=== PATIENT | male | born 1965 | race African-American/Black ===

== ENCOUNTER 2017-03-22 13:38 | Emergency (ER) | payer BC ==
[~2017-03-22] VITALS: Ht 170.2 cm; Wt 75.0 kg
[2017-03-22] MEDS ORDERED: METF500T4 PO (13:42)
[2017-03-22] MEDS ORDERED: SODIUM CHLORIDE 0.9% 1,000 ML IV ONE (13:58)
[2017-03-22 14:17] LABS: BASOPHILS % 0.5 % (0.0-2.0); EOSINOPHILS % 1.3 % (0.0-5.0); HEMATOCRIT. 37.6 % (42.0-52.0); HEMOGLOBIN. 12.9 g/dL (14.0-18.0); MEAN CORPUSCULAR HEMOGLOBIN 29.3 pg (28.0-32.0); MEAN CORPUSCULAR VOLUME 85.5 fL (80.0-94.0); MEAN PLATELET VOLUME 10.2 fl (7.4-10.4); MONOCYTES % 6.9 % (2.0-8.0); NEUTROPHILS % 69.3 % (40.0-76.0); PLATELET 208 x1000/uL (130-400); RED BLOOD CELL COUNT 4.39 mill/uL (4.7-6.1); RED CELL DISTRIBUTION WIDTH 13.5 % (11.6-14.6)
[2017-03-22 14:21] LABS: PROTHROMBIN TIME 10.5 sec (9.4-11.6)
[2017-03-22 14:28] LABS: CARBON DIOXIDE 23 mEq/L (21-32); CHLORIDE 102 mEq/L (98-107)
[2017-03-22] MEDS ORDERED: INSULIN REGULAR (HUMULIN R) 300UNITS/3ML IV ONE (15:00)
[2017-03-22 16:11] VITALS: BP 128/70
== END 2017-03-22 16:13 | disposition home or self-care (01) ==
LOC: ER 13:54
DX: R55 Syncope and collapse (principal); E11.65 Type 2 diabetes mellitus with hyperglycemia; R00.0 Tachycardia, unspecified; I10 Essential (primary) hypertension; Z79.84 Long term (current) use of oral hypoglycemic drugs
CPT/HCPCS: 36415; 80053; 85025; 85610; 93005; 96361; 96374; 99285; J1815; Z7610; J7030

== ENCOUNTER 2024-06-05 18:40 | Inpatient (IN) | payer BC, OTHER ==
[~2024-06-05] VITALS: Ht 182.9 cm; Wt 81.2 kg
[~2024-06-05 18:40] MED LIST: METF-414 PO
[2024-06-05 22:46] LABS: HEMATOCRIT. 27.5 % (42.0-52.0); HEMOGLOBIN. 8.6 g/dL (14.0-18.0); MEAN CORPUSCULAR HEMOGLOBIN 26.9 pg (28.0-32.0); MEAN CORPUSCULAR HGB CONC 31.3 g/dL (31.0-37.0); MEAN CORPUSCULAR VOLUME 86.1 fL (80.0-94.0); MEAN PLATELET VOLUME 9.1 fl (7.4-10.4); PLATELET 557 x1000/uL (130-400); RED CELL DISTRIBUTION WIDTH 17.6 % (11.6-14.6); WHITE BLOOD COUNT 25.6 x1000/uL (4.5-11.0)
[2024-06-05 22:48] LABS: DIFFERENTIAL COMMENT 1
[2024-06-05 22:55] LABS: CARBON DIOXIDE 15 mEq/L (21-32); CHLORIDE 97 mEq/L (98-107); INR 1.1; POTASSIUM 5.2 mEq/L (3.5-5.1); PROTHROMBIN TIME 11.7 sec (9.6-11.0); SODIUM 130 mEq/L (136-145)
[2024-06-05 22:56] LABS: CALCIUM 9.1 mg/dL (8.7-10.4)
[2024-06-05 23:01] LABS: UREA NITROGEN BLOOD 95 mg/dL (9-23)
[2024-06-05 23:03] LABS: BETA HYDROXYBUTYRATE 4.5 mMol/L (0.0-0.3)
[2024-06-05 23:20] LABS: ANISOCYTOSIS 1+; PLATELET ESTIMATE INCREASED
[2024-06-05] MEDS ORDERED: PIPERACILLIN/TAZO 3.375G/50ML 50 ML IV STA (23:22)
[2024-06-05 23:24] LABS: ETHANOL BLOOD < 10 mg/dL (<10); TROPONIN I HIGH SENSITIVITY < 4 ng/L (3.0-53)
[2024-06-05 23:26] LABS: CREATININE 7.4 mg/dL (0.6-1.3); GLUCOSE 565 mg/dL (70-105)
[2024-06-05] MEDS: SODIUM CHLORIDE 0.9% (SEPSIS BOLUS) IV ONE (23:30)
[2024-06-05 23:37] LABS: ALANINE AMINOTRANSFERASE 18 IU/L (10-49); ALBUMIN 3.5 g/dL (3.2-4.8); ASPARTATE AMINOTRANSFERASE 19 IU/L (<34); BILIRUBIN TOTAL 0.2 mg/dL (0.1-1.0); PROTEIN TOTAL 7.6 g/dL (6.0-8.3)
[2024-06-05 23:51] LABS: BILIRUBIN DIRECT < 0.1 mg/dL (<=3.0)
[2024-06-06 00:21] LABS: BG BASE EXCESS -9.7 mmol/L (-2.0-3.0); BG CARBOXYHEMOGLOBIN 0.1 % (0.5-1.5); BG DEOXYHEMOGLOBIN 0.9 % (0.0-5.0); BG FRACTION INSPIRED OXYGEN 21; BG HCO3 ACT 14.1 mmol/L (21.0-28.0); BG OXYGEN SATURATION 99.1 % (94.0-98.0); BG PCO2 24.4 mmHg (35.0-48.0); BG PH 7.379 (7.350-7.450); BG VENT MODE ROOM AIR
[2024-06-06] MEDS ORDERED: GUAIFENESIN 200MG/10ML SUGAR FREE UDC PO PRN (02:45)
[2024-06-06] MEDS ORDERED: MAGNESIUM/ALUMINUM HYDROXIDE/SIMETHICONE 30ML UDC PO PRN (02:45)
[2024-06-06] MEDS ORDERED: ONDANSETRON HCL 4MG/2ML INJ IV PRN (02:45)
[2024-06-06] MEDS ORDERED: IPRATROPIUM/ALBUTEROL 0.5-3(2.5)MG/3ML NEB HHN PRN (02:45)
[2024-06-06] MEDS ORDERED: DEXTROSE 50% WATER 50ML SYRINGE IV PRN (03:00)
[2024-06-06] MEDS ORDERED: VANCOMYCIN 1.5GM PMX (XELLIA) 300 ML IV NR (03:15)
[2024-06-06] MEDS: SODIUM CHLORIDE 0.9% 1,000 ML IV ONE (03:56)
[2024-06-06 04:07] LABS: CREATINE KINASE 36 IU/L (46-171)
[2024-06-06] MEDS: THIAMINE HCL 100MG TABLET PO SCH (04:08)
[2024-06-06] MEDS: INSULIN GLARGINE 100 UNITS/ML SUBCUT NR ×2 (04:10→09:14)
[2024-06-06] MEDS: PIPERACILLIN/TAZO 3.375G/50ML 50 ML IV SCH ×2 (04:21→21:10)
[2024-06-06] MEDS: SODIUM CHLORIDE 0.9% 1,000 ML IV SCH (04:22)
[2024-06-06] MEDS: INSULIN REGULAR (HUMULIN R) 1000UNITS/10ML VIAL IV NR (04:22)
[2024-06-06 05:15] LABS: PHOSPHORUS 8.7 mg/dL (2.5-4.9)
[2024-06-06 07:20] LABS: HEMATOCRIT. 26.7 % (42.0-52.0); HEMOGLOBIN. 8.3 g/dL (14.0-18.0); MEAN CORPUSCULAR HEMOGLOBIN 25.9 pg (28.0-32.0); MEAN CORPUSCULAR VOLUME 83.5 fL (80.0-94.0); MEAN PLATELET VOLUME 10.2 fl (7.4-10.4); PLATELET 547 x1000/uL (130-400); RED CELL DISTRIBUTION WIDTH 17.8 % (11.6-14.6); WHITE BLOOD COUNT 26.9 x1000/uL (4.5-11.0)
[2024-06-06 07:21] LABS: POTASSIUM 5.4 mEq/L (3.5-5.1)
[2024-06-06 07:22] LABS: CALCIUM 9.2 mg/dL (8.7-10.4)
[2024-06-06 07:24] LABS: DIFFERENTIAL COMMENT 1
[2024-06-06 07:48] LABS: CREATININE 7.3 mg/dL (0.6-1.3)
[2024-06-06] MEDS ORDERED: NALOXONE HCL 0.4MG/ML VIAL IV PRN (08:00)
[2024-06-06] MEDS ORDERED: MULTIVITAMINS,THER W-MINERALS TABLET PO SCH (09:00)
[2024-06-06] MEDS ORDERED: VANCOMYCIN 1G PREMIX 200 ML IV SCH (09:00)
[2024-06-06] MEDS: BLOOD SUGAR DIAGNOSTIC STRIP TEST SCH (09:15)
[2024-06-06] MEDS: ENOXAPARIN 30MG/0.3ML SYR SUBCUT SCH (09:19)
[2024-06-06 10:00] VITALS: BP 147/70; PULSE 93; RESP 18; TEMP 36.6; O2SAT 99
[2024-06-06 11:15] LABS: CLARITY URINE CLEAR (CLEAR); COLOR URINE YELLOW (YELLOW); GLUCOSE URINE 3+ (NEGATIVE); KETONES URINE 1+ (NEGATIVE); LEUKOCYTE ESTERASE URINE NEGATIVE (NEGATIVE); NITRITE URINE NEGATIVE (NEGATIVE); OCCULT BLOOD URINE 1+ (NEGATIVE); PH URINE 5.5 (4.5-8.0); PROTEIN URINE 3+ (NEGATIVE); UROBILINOGEN URINE 0.2 E.U./dL (0.2-1.0)
[2024-06-06 11:44] LABS: *AMPHETAMINES SCREEN URINE NEGATIVE (NEGATIVE); *BARBITURATES SCREEN URINE NEGATIVE (NEGATIVE); *BENZODIAZEPINES SCREEN URINE NEGATIVE (NEGATIVE); *COCAINE SCREEN URINE NEGATIVE (NEGATIVE); METHADONE URINE SCREEN NEGATIVE (NEGATIVE)
[2024-06-06 11:45] LABS: CANNABINOID URINE SCREEN NEGATIVE (NEGATIVE); CREATININE URINE RANDOM 42.8 mg/dL; ECSTASY MDMA SCREEN URINE NEGATIVE (NEGATIVE); OPIATES URINE SCREEN NEGATIVE (NEGATIVE); PHENCYCLIDINE URINE SCREEN NEGATIVE (NEGATIVE)
[2024-06-06 12:00] VITALS: BP 152/79; PULSE 96; RESP 18; TEMP 36.3; O2SAT 100
[2024-06-06 12:04] LABS: BACTERIA URINE RARE; RBC URINE NONE SEEN /hpf (0-2); SQUAMOUS EPITHELIAL CELL URINE NONE SEEN /lpf (RARE/1+); WBC URINE 0-2 /hpf (0-2); YEAST URINE NONE SEEN
[2024-06-06 12:39] VITALS: BP 145/75; PULSE 88; RESP 20; TEMP 36.7
[2024-06-06] MEDS: INSULIN LISPRO 100 UNITS/ML SUBCUT SCH ×2 (12:40→13:30)
[2024-06-06] MEDS: VANCOMYCIN 1000MG/250ML 250 ML IV SCH (14:00)
[2024-06-06] MEDS: SEVELAMER CARBONATE 800 MG TABLET PO SCH (14:53)
[2024-06-06] MEDS ORDERED: VANCOMYCIN 1.25GM PMX (XELLIA) 250 ML IV SCH (15:00)
[2024-06-06 16:00] VITALS: BP 128/68; PULSE 92; RESP 18; TEMP 37; O2SAT 98
[2024-06-06 16:47] LABS: ANISOCYTOSIS 1+; PLATELET ESTIMATE INCREASED
[2024-06-06 19:06] LABS: POTASSIUM 4.1 mEq/L (3.5-5.1)
[2024-06-06 19:07] LABS: CALCIUM 8.9 mg/dL (8.7-10.4)
[2024-06-06 19:47] LABS: CREATININE 6.1 mg/dL (0.6-1.3)
[2024-06-06 20:00] VITALS: BP 139/77; PULSE 80; RESP 17; TEMP 38.1; O2SAT 98
[2024-06-06] MEDS: VANCOMYCIN 1.25GM PMX (XELLIA) 250 ML IV SCH (21:10)
[2024-06-06] MEDS: FAMOTIDINE 20MG TABLET PO SCH (21:11)
[2024-06-06 21:22] LABS: POTASSIUM 4.1 mEq/L (3.5-5.1)
[2024-06-06 21:23] LABS: CALCIUM 9.1 mg/dL (8.7-10.4)
[2024-06-06 21:30] LABS: CREATININE 5.8 mg/dL (0.6-1.3)
[2024-06-07] VITALS: BP_SYST 126; PULSE 75; RESP 17; TEMP 37.4; O2SAT 95
[2024-06-07 04:00] VITALS: BP 146/67; PULSE 78; RESP 15; TEMP 37.7; O2SAT 96
[2024-06-07 08:00] VITALS: BP 154/79; PULSE 65; RESP 20; TEMP 36.7; O2SAT 98
[2024-06-07 12:00] VITALS: BP 143/82; PULSE 98; RESP 20; TEMP 36.8; O2SAT 98
[2024-06-07 16:00] VITALS: BP 143/87; PULSE 78; RESP 18; TEMP 36.1; O2SAT 98
[2024-06-07 20:00] VITALS: BP 139/82; PULSE 104; RESP 20; TEMP 36.4; O2SAT 96
[2024-06-07] MEDS: INSULIN GLARGINE 100 UNITS/ML SUBCUT SCH (21:43)
[2024-06-07 21:48] LABS: CREATININE URINE (RAW) 49.8 mg/dl
[2024-06-07 22:32] LABS: HEMATOCRIT. 23.9 % (42.0-52.0); HEMOGLOBIN. 7.9 g/dL (14.0-18.0); MEAN CORPUSCULAR HEMOGLOBIN 26.9 pg (28.0-32.0); MEAN CORPUSCULAR VOLUME 81.5 fL (80.0-94.0); MEAN PLATELET VOLUME 9.5 fl (7.4-10.4); PLATELET 501 x1000/uL (130-400); RED BLOOD CELL COUNT 2.93 mill/uL (4.7-6.1); RED CELL DISTRIBUTION WIDTH 17.1 % (11.6-14.6); WHITE BLOOD COUNT 23.7 x1000/uL (4.5-11.0)
[2024-06-07 22:38] LABS: CHLORIDE 105 mEq/L (98-107); POTASSIUM 3.9 mEq/L (3.5-5.1)
[2024-06-07 22:39] LABS: CARBON DIOXIDE 20 mEq/L (21-32); DIFFERENTIAL COMMENT 1; SODIUM 137 mEq/L (136-145)
[2024-06-07 22:40] LABS: CALCIUM 8.6 mg/dL (8.7-10.4)
[2024-06-07 22:44] LABS: CREATININE 4.2 mg/dL (0.6-1.3); GLUCOSE 230 mg/dL (70-105)
[2024-06-07 22:45] LABS: TRIGLYCERIDE 210 mg/dL (0-150); UREA NITROGEN BLOOD 67 mg/dL (9-23)
[2024-06-07 22:46] LABS: LDL CHOLESTEROL 79 mg/dL (5-100)
[2024-06-07 22:47] LABS: CHOLESTEROL 160 mg/dL (<200); HDL CHOLESTEROL < 20 mg/dL (>55)
[2024-06-07 22:49] LABS: T4 FREE 0.93 ng/dL (0.89-1.76); THYROID STIMULATING HORMONE 1.16 uIU/mL (0.55-4.78)
[2024-06-07 22:53] LABS: ANISOCYTOSIS 1+; PLATELET ESTIMATE INCREASED
[2024-06-08] VITALS: BP 138/76; PULSE 103; RESP 18; TEMP 36.6; O2SAT 97
[2024-06-08 04:00] VITALS: BP 159/85; PULSE 95; RESP 18; TEMP 36.3; O2SAT 97
[2024-06-08 07:41] LABS: POTASSIUM 3.8 mEq/L (3.5-5.1)
[2024-06-08 07:43] LABS: CALCIUM 8.1 mg/dL (8.7-10.4)
[2024-06-08 07:52] LABS: HEMOGLOBIN. 7.8 g/dL (14.0-18.0); MEAN CORPUSCULAR HEMOGLOBIN 26.6 pg (28.0-32.0); MEAN CORPUSCULAR HGB CONC 32.5 g/dL (31.0-37.0); MEAN PLATELET VOLUME 9.5 fl (7.4-10.4); PLATELET 437 x1000/uL (130-400); RED BLOOD CELL COUNT 2.92 mill/uL (4.7-6.1); RED CELL DISTRIBUTION WIDTH 17.3 % (11.6-14.6); WHITE BLOOD COUNT 20.1 x1000/uL (4.5-11.0)
[2024-06-08 08:00] VITALS: BP 137/92; PULSE 94; RESP 20; TEMP 38.3; O2SAT 96
[2024-06-08 08:18] LABS: DIFFERENTIAL COMMENT 1
[2024-06-08 09:06] LABS: COMPLEMENT C3 192 mg/dL (82-167); COMPLEMENT C4 29 mg/dL (12-38)
[2024-06-08] MEDS: HYDROCODONE/ACETAMINOPHEN 5/325MG TABLET PO PRN (10:13)
[2024-06-08] MEDS: ACETAMINOPHEN 325MG TABLET PO PRN (10:13)
[2024-06-08 12:00] VITALS: RESP 20; TEMP 38.9; O2SAT 96
[2024-06-08] MEDS: VANCOMYCIN 1.25GM PMX (XELLIA) 250 ML IV NR (12:10)
[2024-06-08 13:11] LABS: ANTI-NUCLEAR ANTIBODIES DIRECT Positive (Negative)
[2024-06-08 16:00] VITALS: BP 133/73; PULSE 86; RESP 18; TEMP 38.1; O2SAT 98
[2024-06-08 17:54] LABS: ANISOCYTOSIS 1+
[2024-06-08 17:55] LABS: MICROCYTOSIS 1+; PLATELET ESTIMATE INCREASED
[2024-06-08 20:00] VITALS: BP 133/71; PULSE 100; RESP 18; TEMP 36.7; O2SAT 98
[2024-06-09] VITALS (7 sets, daily range): BP systolic 111–152; BP diastolic 59–81; PULSE 88–107; RESP 17–18; TEMP 36.1–37.8; O2SAT 95–98
[2024-06-09 06:31] LABS: HEMATOCRIT. 21.5 % (42.0-52.0); HEMOGLOBIN. 7.1 g/dL (14.0-18.0); MEAN CORPUSCULAR HEMOGLOBIN 27.1 pg (28.0-32.0); MEAN CORPUSCULAR HGB CONC 32.9 g/dL (31.0-37.0); MEAN CORPUSCULAR VOLUME 82.5 fL (80.0-94.0); MEAN PLATELET VOLUME 9.1 fl (7.4-10.4); PLATELET 373 x1000/uL (130-400); POTASSIUM 3.6 mEq/L (3.5-5.1); RED BLOOD CELL COUNT 2.61 mill/uL (4.7-6.1); RED CELL DISTRIBUTION WIDTH 17.1 % (11.6-14.6); WHITE BLOOD COUNT 21.9 x1000/uL (4.5-11.0)
[2024-06-09 06:32] LABS: CALCIUM 7.9 mg/dL (8.7-10.4)
[2024-06-09 06:36] LABS: DIFFERENTIAL COMMENT 1
[2024-06-09 06:37] LABS: CREATININE 3.6 mg/dL (0.6-1.3)
[2024-06-09] MEDS ORDERED: CIPR500S3 PO (09:37)
[2024-06-09] MEDS ORDERED: IBUP-2029 PO (09:37)
[2024-06-09] MEDS ORDERED: AMOX1TAB16 PO (09:37)
[2024-06-09] MEDS ORDERED: CIPR500T5 PO (09:38)
[2024-06-09] MEDS: SODIUM HYPOCHLORITE (0.25%) 480ML SOLUTION (HALF STRENGTH) TOP SCH (16:21)
[2024-06-09] MEDS: ACETAMINOPHEN 325MG TABLET PO PRN (22:40)
[2024-06-10] VITALS (7 sets, daily range): BP systolic 103–149; BP diastolic 51–65; PULSE 88–110; RESP 18–20; TEMP 36.1–39.2; O2SAT 97–100
[2024-06-10 09:18] LABS: HEMATOCRIT. 22.4 % (42.0-52.0); MEAN CORPUSCULAR HEMOGLOBIN 26.6 pg (28.0-32.0); MEAN CORPUSCULAR HGB CONC 30.9 g/dL (31.0-37.0); MEAN CORPUSCULAR VOLUME 86.1 fL (80.0-94.0); MEAN PLATELET VOLUME 9.6 fl (7.4-10.4); PLATELET 275 x1000/uL (130-400); RED CELL DISTRIBUTION WIDTH 17.3 % (11.6-14.6); WHITE BLOOD COUNT 19.4 x1000/uL (4.5-11.0)
[2024-06-10 09:21] LABS: POTASSIUM 3.5 mEq/L (3.5-5.1)
[2024-06-10 09:26] LABS: CREATININE 3.1 mg/dL (0.6-1.3)
[2024-06-10 11:27] LABS: DIFFERENTIAL COMMENT 1
[2024-06-10 11:29] LABS: HEMOGLOBIN. 6.9 g/dL (14.0-18.0)
[2024-06-10] MEDS: VANCOMYCIN 1G PREMIX 200 ML IV NR (13:20)
[2024-06-10 14:05] LABS: ANISOCYTOSIS 1+; PLATELET ESTIMATE NORMAL
[2024-06-10 19:41] LABS: HEMATOCRIT 21.8 % (42.0-52.0); HEMOGLOBIN 6.9 g/dL (14.0-18.0)
[2024-06-11] VITALS (9 sets, daily range): BP systolic 122–149; BP diastolic 58–71; PULSE 84–93; RESP 18–20; TEMP 36.2–38.2; O2SAT 97–98
[2024-06-11 06:30] LABS: HEMATOCRIT. 23.2 % (42.0-52.0); HEMOGLOBIN. 7.5 g/dL (14.0-18.0); MEAN CORPUSCULAR HEMOGLOBIN 26.9 pg (28.0-32.0); MEAN CORPUSCULAR HGB CONC 32.2 g/dL (31.0-37.0); MEAN CORPUSCULAR VOLUME 83.6 fL (80.0-94.0); MEAN PLATELET VOLUME 9.9 fl (7.4-10.4); PLATELET 329 x1000/uL (130-400); RED BLOOD CELL COUNT 2.77 mill/uL (4.7-6.1); RED CELL DISTRIBUTION WIDTH 16.4 % (11.6-14.6); WHITE BLOOD COUNT 20.8 x1000/uL (4.5-11.0)
[2024-06-11 06:33] LABS: DIFFERENTIAL COMMENT 1
[2024-06-11] MEDS: HYDROCODONE/ACETAMINOPHEN 5/325MG TABLET PO PRN (11:37)
[2024-06-11] MEDS ORDERED: NALOXONE HCL 0.4MG/ML VIAL IV PRN (11:45)
[2024-06-11 15:33] LABS: ANISOCYTOSIS 1+; HYPOCHROMASIA 1+; PLATELET ESTIMATE NORMAL
[2024-06-11 16:39] LABS: ANISOCYTOSIS 1+; HYPOCHROMASIA 1+; PLATELET ESTIMATE NORMAL
[2024-06-12] VITALS: BP 130/69; PULSE 98; RESP 18; TEMP 36.9; O2SAT 97
[2024-06-12 04:00] VITALS: BP 117/60; PULSE 96; RESP 20; TEMP 36.7; O2SAT 98
[2024-06-12 05:19] LABS: POTASSIUM 3.4 mEq/L (3.5-5.1)
[2024-06-12 05:20] LABS: CALCIUM 7.9 mg/dL (8.7-10.4)
[2024-06-12 05:25] LABS: CREATININE 2.6 mg/dL (0.6-1.3)
[2024-06-12 09:32] LABS: HEMATOCRIT. 24.5 % (42.0-52.0); HEMOGLOBIN. 7.7 g/dL (14.0-18.0); MEAN CORPUSCULAR HEMOGLOBIN 26.2 pg (28.0-32.0); MEAN CORPUSCULAR HGB CONC 31.6 g/dL (31.0-37.0); MEAN CORPUSCULAR VOLUME 82.9 fL (80.0-94.0); MEAN PLATELET VOLUME 9.6 fl (7.4-10.4); PLATELET 353 x1000/uL (130-400); RED BLOOD CELL COUNT 2.95 mill/uL (4.7-6.1); RED CELL DISTRIBUTION WIDTH 16.7 % (11.6-14.6); WHITE BLOOD COUNT 16.9 x1000/uL (4.5-11.0)
[2024-06-12 09:44] LABS: DIFFERENTIAL COMMENT 1
[2024-06-12] MEDS: POTASSIUM CHLORIDE 20MEQ TABLET SR PO ONE (11:01)
[2024-06-12 12:00] VITALS: BP 120/76; PULSE 105; RESP 18; TEMP 36.4; O2SAT 98
[2024-06-12] MEDS: VANCOMYCIN 1G PREMIX 200 ML IV NR (15:08)
[2024-06-12 16:00] VITALS: BP 120/62; PULSE 93; RESP 18; TEMP 36.6; O2SAT 98
[2024-06-12 20:00] VITALS: BP 117/66; PULSE 93; RESP 19; TEMP 36.6; O2SAT 96
[2024-06-12 21:12] LABS: ANISOCYTOSIS 1+; PLATELET ESTIMATE NORMAL
[2024-06-12] MEDS: DOCUSATE SODIUM 100MG CAPSULE PO PRN (23:44)
[2024-06-13] VITALS: BP 160/73; PULSE 102; RESP 19; TEMP 36.5; O2SAT 98
[2024-06-13 04:00] VITALS: BP 135/65; PULSE 92; RESP 19; TEMP 36.6; O2SAT 97
[2024-06-13 08:00] VITALS: BP 138/67; PULSE 85; RESP 20; TEMP 36.4; O2SAT 98
[2024-06-13 09:06] LABS: CARBON DIOXIDE 19 mEq/L (21-32); CHLORIDE 107 mEq/L (98-107); POTASSIUM 3.4 mEq/L (3.5-5.1); SODIUM 134 mEq/L (136-145)
[2024-06-13 09:08] LABS: CALCIUM 8.2 mg/dL (8.7-10.4)
[2024-06-13 09:12] LABS: CREATININE 2.2 mg/dL (0.6-1.3); GLUCOSE 173 mg/dL (70-105)
[2024-06-13 09:13] LABS: UREA NITROGEN BLOOD 28 mg/dL (9-23)
[2024-06-13 09:15] LABS: PHOSPHORUS 2.3 mg/dL (2.5-4.9)
[2024-06-13 11:01] LABS: HEMATOCRIT. 22.5 % (42.0-52.0); HEMOGLOBIN. 7.3 g/dL (14.0-18.0); MEAN CORPUSCULAR HEMOGLOBIN 26.6 pg (28.0-32.0); MEAN CORPUSCULAR HGB CONC 32.4 g/dL (31.0-37.0); MEAN CORPUSCULAR VOLUME 82.2 fL (80.0-94.0); MEAN PLATELET VOLUME 9.3 fl (7.4-10.4); PLATELET 315 x1000/uL (130-400); RED BLOOD CELL COUNT 2.74 mill/uL (4.7-6.1); RED CELL DISTRIBUTION WIDTH 16.2 % (11.6-14.6); WHITE BLOOD COUNT 16.1 x1000/uL (4.5-11.0)
[2024-06-13 11:24] LABS: DIFFERENTIAL COMMENT 1
[2024-06-13 12:00] VITALS: BP 126/64; PULSE 88; RESP 18; TEMP 36.5; O2SAT 98
[2024-06-13] MEDS: POLYETHYLENE GLYCOL 3350 (17GM) 1 DOSE PACK PO SCH (13:31)
[2024-06-13 16:00] VITALS: BP 139/75; PULSE 87; RESP 18; TEMP 36.6; O2SAT 97
[2024-06-13 20:00] VITALS: BP 123/68; PULSE 88; RESP 20; TEMP 37; O2SAT 98
[2024-06-14 00:48] VITALS: BP 125/66; PULSE 70; RESP 20; TEMP 36.7; O2SAT 98
[2024-06-14 00:49] LABS: PLATELET ESTIMATE NORMAL
[2024-06-14 04:00] VITALS: BP 143/64; PULSE 87; RESP 18; TEMP 36.7; O2SAT 98
[2024-06-14 06:59] LABS: BASOPHILS % 0.2 % (0.0-2.0); EOSINOPHILS % 1.9 % (0.0-5.0); HEMATOCRIT. 23.2 % (42.0-52.0); HEMOGLOBIN. 7.7 g/dL (14.0-18.0); MEAN CORPUSCULAR HEMOGLOBIN 26.9 pg (28.0-32.0); MEAN CORPUSCULAR HGB CONC 33.1 g/dL (31.0-37.0); MEAN CORPUSCULAR VOLUME 81.2 fL (80.0-94.0); MONOCYTES % 8.2 % (2.0-8.0); NEUTROPHILS % 80.7 % (40.0-76.0); PLATELET 309 x1000/uL (130-400); RED BLOOD CELL COUNT 2.85 mill/uL (4.7-6.1); RED CELL DISTRIBUTION WIDTH 16.2 % (11.6-14.6); WHITE BLOOD COUNT 12.7 x1000/uL (4.5-11.0)
[2024-06-14 07:01] LABS: POTASSIUM 3.9 mEq/L (3.5-5.1)
[2024-06-14 07:02] LABS: CALCIUM 7.9 mg/dL (8.7-10.4)
[2024-06-14 08:00] VITALS: BP 144/63; PULSE 88; RESP 18; TEMP 36.6; O2SAT 98
[2024-06-14 12:00] VITALS: BP 152/80; PULSE 95; RESP 18; TEMP 36.6; O2SAT 98
[2024-06-14 16:00] VITALS: BP 133/72; PULSE 94; RESP 18; TEMP 36.5; O2SAT 98
[2024-06-14] MEDS: VANCOMYCIN 1GM/200ML PMX (BAXTER) IV SCH (17:19)
[2024-06-14 20:00] VITALS: BP 148/74; PULSE 87; RESP 18; TEMP 36.6; O2SAT 99
[2024-06-15] VITALS: BP 131/59; PULSE 88; RESP 18; TEMP 36.6; O2SAT 99
[2024-06-15 04:00] VITALS: BP 139/67; PULSE 89; RESP 18; TEMP 36.5; O2SAT 99
[2024-06-15 08:00] VITALS: BP 150/77; PULSE 83; RESP 16; TEMP 36.8; O2SAT 98
[2024-06-15] MEDS ORDERED: IODIXANOL 320MG/ML 100 ML BOTTLE IV ONE (10:01)
[2024-06-15] MEDS ORDERED: LIDOCAINE HCL 1% 20ML VIAL ONE (10:01)
[2024-06-15] MEDS ORDERED: MIDAZOLAM HCL 2 MG/2 ML VIAL ONE ×2 (11:10→11:12)
[2024-06-15] MEDS ORDERED: FENTANYL CITRATE/PF 50MCG/ML 2ML VIAL ONE ×2 (11:10→11:12)
[2024-06-15] MEDS ORDERED: HEPARIN 1000 UNITS/ML 10ML ONE (11:10)
[2024-06-15] MEDS: CLONIDINE 0.1MG TABLET PO PRN (13:20)
[2024-06-15 14:00] VITALS: BP 110/63; PULSE 88; RESP 18; TEMP 36.6; O2SAT 97
[2024-06-15] MEDS: CLOPIDOGREL 75MG TABLET PO SCH (14:29)
[2024-06-15 16:00] VITALS: BP 128/68; PULSE 77; RESP 20; TEMP 36.7; O2SAT 98
[2024-06-15 20:00] VITALS: BP 137/73; PULSE 86; RESP 18; TEMP 36.9; O2SAT 98
[2024-06-15] MEDS: VANCOMYCIN 1.25GM PMX (XELLIA) 250 ML IV SCH (22:05)
[2024-06-16] VITALS: BP 120/88; PULSE 89; RESP 18; TEMP 36.5; O2SAT 97
[2024-06-16 04:00] VITALS: BP 144/70; PULSE 87; RESP 18; TEMP 36.3; O2SAT 99
[2024-06-16 06:49] LABS: POTASSIUM 4.2 mEq/L (3.5-5.1)
[2024-06-16 06:55] LABS: CREATININE 2.1 mg/dL (0.6-1.3)
[2024-06-16 07:06] LABS: BASOPHILS % 0.3 % (0.0-2.0); EOSINOPHILS % 2.5 % (0.0-5.0); HEMATOCRIT. 21.8 % (42.0-52.0); HEMOGLOBIN. 7.1 g/dL (14.0-18.0); LYMPHOCYTES % 10.4 % (20.0-50.0); MEAN CORPUSCULAR HEMOGLOBIN 26.7 pg (28.0-32.0); MEAN CORPUSCULAR HGB CONC 32.6 g/dL (31.0-37.0); MEAN CORPUSCULAR VOLUME 81.8 fL (80.0-94.0); MEAN PLATELET VOLUME 8.3 fl (7.4-10.4); MONOCYTES % 8.2 % (2.0-8.0); NEUTROPHILS % 78.6 % (40.0-76.0); PLATELET 339 x1000/uL (130-400); RED BLOOD CELL COUNT 2.67 mill/uL (4.7-6.1); RED CELL DISTRIBUTION WIDTH 16.3 % (11.6-14.6)
[2024-06-16 08:00] VITALS: BP_SYST 110; BP_SYST 146; BP_DIAS 71; BP_DIAS 75; PULSE 94; PULSE 95; RESP 18; RESP 22; TEMP 36.4; TEMP 36.6; O2SAT 97; O2SAT 99
[2024-06-16 12:00] VITALS: BP 161/83; PULSE 91; RESP 18; TEMP 37; O2SAT 99
[2024-06-16 16:00] VITALS: BP 148/84; PULSE 82; RESP 20; TEMP 38.7; O2SAT 100
[2024-06-16 18:55] VITALS: TEMP 38.2
[2024-06-17] VITALS (11 sets, daily range): BP systolic 133–163; BP diastolic 72–79; PULSE 66–102; RESP 17–20; TEMP 36.2–37.11408; O2SAT 97–100
[2024-06-17 06:49] LABS: POTASSIUM 4.5 mEq/L (3.5-5.1)
[2024-06-17 06:50] LABS: CALCIUM 7.7 mg/dL (8.7-10.4)
[2024-06-17 08:39] LABS: BASOPHILS % 0.6 % (0.0-2.0); DIFFERENTIAL COMMENT 0; EOSINOPHILS % 2.3 % (0.0-5.0); HEMATOCRIT. 21.4 % (42.0-52.0); LYMPHOCYTES % 10.4 % (20.0-50.0); MEAN CORPUSCULAR HEMOGLOBIN 26.4 pg (28.0-32.0); MEAN CORPUSCULAR HGB CONC 32.1 g/dL (31.0-37.0); MEAN CORPUSCULAR VOLUME 82.3 fL (80.0-94.0); MONOCYTES % 8.4 % (2.0-8.0); NEUTROPHILS % 78.3 % (40.0-76.0); PLATELET 337 x1000/uL (130-400); RED CELL DISTRIBUTION WIDTH 16.6 % (11.6-14.6); WHITE BLOOD COUNT 11.2 x1000/uL (4.5-11.0)
[2024-06-17 10:44] LABS: HEMOGLOBIN. 6.8 g/dL (14.0-18.0)
[2024-06-17] MEDS ORDERED: NALOXONE HCL 0.4MG/ML VIAL IV PRN (14:15)
[2024-06-17] MEDS: HYDROCODONE/ACETAMINOPHEN 5/325MG TABLET PO PRN (14:21)
[2024-06-18] VITALS (7 sets, daily range): BP systolic 127–165; BP diastolic 66–86; PULSE 92–104; RESP 18–20; TEMP 36.3–38.1; O2SAT 97–100
[2024-06-18 11:29] LABS: BASOPHILS % 0.3 % (0.0-2.0); EOSINOPHILS % 1.4 % (0.0-5.0); HEMOGLOBIN. 8.1 g/dL (14.0-18.0); LYMPHOCYTES % 10.2 % (20.0-50.0); MEAN CORPUSCULAR HEMOGLOBIN 26.9 pg (28.0-32.0); MEAN CORPUSCULAR HGB CONC 32.3 g/dL (31.0-37.0); MEAN CORPUSCULAR VOLUME 83.4 fL (80.0-94.0); MEAN PLATELET VOLUME 7.8 fl (7.4-10.4); MONOCYTES % 6.6 % (2.0-8.0); NEUTROPHILS % 81.5 % (40.0-76.0); PLATELET 389 x1000/uL (130-400); RED CELL DISTRIBUTION WIDTH 16.3 % (11.6-14.6); WHITE BLOOD COUNT 11.3 x1000/uL (4.5-11.0)
[2024-06-18 11:48] LABS: POTASSIUM 4.4 mEq/L (3.5-5.1)
[2024-06-18 11:50] LABS: CALCIUM 8.3 mg/dL (8.7-10.4)
[2024-06-18 11:54] LABS: CREATININE 1.8 mg/dL (0.6-1.3)
[2024-06-18 11:56] LABS: ALBUMIN 2.8 g/dL (3.2-4.8)
[2024-06-19] VITALS: BP 105/66; PULSE 70; RESP 20; TEMP 36.7; O2SAT 98
[2024-06-19 04:00] VITALS: BP 149/89; PULSE 96; RESP 18; TEMP 36.6; O2SAT 98
[2024-06-19 06:11] LABS: POTASSIUM 4.6 mEq/L (3.5-5.1)
[2024-06-19 06:12] LABS: CALCIUM 8.3 mg/dL (8.7-10.4)
[2024-06-19 06:17] LABS: CREATININE 1.7 mg/dL (0.6-1.3)
[2024-06-19 07:23] LABS: BASOPHILS % 0.5 % (0.0-2.0); EOSINOPHILS % 2.4 % (0.0-5.0); HEMATOCRIT. 24.3 % (42.0-52.0); HEMOGLOBIN. 8.2 g/dL (14.0-18.0); LYMPHOCYTES % 13.5 % (20.0-50.0); MEAN CORPUSCULAR HEMOGLOBIN 27.8 pg (28.0-32.0); MEAN CORPUSCULAR HGB CONC 33.8 g/dL (31.0-37.0); MEAN CORPUSCULAR VOLUME 82.3 fL (80.0-94.0); MEAN PLATELET VOLUME 7.8 fl (7.4-10.4); MONOCYTES % 6.4 % (2.0-8.0); NEUTROPHILS % 77.2 % (40.0-76.0); PLATELET 387 x1000/uL (130-400); RED BLOOD CELL COUNT 2.95 mill/uL (4.7-6.1); RED CELL DISTRIBUTION WIDTH 16.3 % (11.6-14.6); WHITE BLOOD COUNT 10.3 x1000/uL (4.5-11.0)
[2024-06-19 08:00] VITALS: BP 144/81; PULSE 97; RESP 18; TEMP 36.1; O2SAT 98
[2024-06-19 12:00] VITALS: BP 136/65; PULSE 90; RESP 20; TEMP 36.3; O2SAT 99
[2024-06-19 16:00] VITALS: BP 164/76; PULSE 90; RESP 18; TEMP 36.4; O2SAT 96
[2024-06-19 20:00] VITALS: BP 155/82; PULSE 96; RESP 20; TEMP 37.3; O2SAT 100
[2024-06-20] VITALS (9 sets, daily range): BP systolic 140–171; BP diastolic 74–94; PULSE 77–92; RESP 18–20; TEMP 36.1–37.2; O2SAT 97–100
[2024-06-20 06:29] LABS: HEMATOCRIT 25.2 % (42.0-52.0); HEMOGLOBIN 8.3 g/dL (14.0-18.0); MEAN CORPUSCULAR HEMOGLOBIN 27.3 pg (28.0-32.0); MEAN CORPUSCULAR VOLUME 82.7 fL (80.0-94.0); PLATELET 387 x1000/uL (130-400); RED BLOOD CELL COUNT 3.04 mill/uL (4.7-6.1); WHITE BLOOD COUNT 9.1 x1000/uL (4.5-11.0)
[2024-06-20 06:31] LABS: POTASSIUM 4.7 mEq/L (3.5-5.1)
[2024-06-20 06:32] LABS: CALCIUM 8.4 mg/dL (8.7-10.4)
[2024-06-20 06:37] LABS: CREATININE 1.7 mg/dL (0.6-1.3)
[2024-06-20] MEDS ORDERED: POLYMYXIN B SULFATE 500000 UNITS/VIAL ONE (15:25)
[2024-06-20] MEDS ORDERED: BUPIVACAINE HCL/PF 0.5% (5MG/ML) 10ML ONE ×2 (15:25→18:21)
[2024-06-20] MEDS ORDERED: VANCOMYCIN HCL 1GM VIAL ONE (15:25)
[2024-06-20] MEDS ORDERED: GLYCOPYRROLATE 0.2 MG/ML 2ML VIAL IV PRN (17:30)
[2024-06-20] MEDS ORDERED: DEXAMETHASONE 4MG/ML 1ML VIAL IV PRN (17:30)
[2024-06-20] MEDS ORDERED: HYDRALAZINE 20MG/ML VIAL IV PRN (17:30)
[2024-06-20] MEDS ORDERED: HYDROMORPHONE HCL/PF 1MG/ML INJ IV PRN ×2 (17:30)
[2024-06-20] MEDS ORDERED: ONDANSETRON HCL 4MG/2ML INJ IV PRN (17:30)
[2024-06-20] MEDS ORDERED: LABETALOL 5MG/ML 4ML INJ IV PRN (17:30)
[2024-06-20] MEDS ORDERED: HYDROMORPHONE HCL/PF 1MG/ML INJ ONE (17:38)
[2024-06-20] MEDS ORDERED: PROPOFOL 200MG/20ML VIAL IV ONE (17:39)
[2024-06-20] MEDS: HYDROMORPHONE HCL/PF 1MG/ML INJ IV PRN (19:56)
[2024-06-21] VITALS (7 sets, daily range): BP systolic 138–169; BP diastolic 60–87; PULSE 76–94; RESP 18–20; TEMP 36.3–37; O2SAT 97–100
[2024-06-21 06:21] LABS: CREATININE 1.7 mg/dL (0.6-1.3)
[2024-06-21 06:52] LABS: BASOPHILS % 0.6 % (0.0-2.0); EOSINOPHILS % 3.5 % (0.0-5.0); HEMATOCRIT. 27.6 % (42.0-52.0); MEAN CORPUSCULAR HEMOGLOBIN 27.3 pg (28.0-32.0); MEAN CORPUSCULAR HGB CONC 32.6 g/dL (31.0-37.0); MEAN PLATELET VOLUME 7.9 fl (7.4-10.4); MONOCYTES % 5.8 % (2.0-8.0); NEUTROPHILS % 79.1 % (40.0-76.0); PLATELET 422 x1000/uL (130-400); RED BLOOD CELL COUNT 3.29 mill/uL (4.7-6.1); RED CELL DISTRIBUTION WIDTH 16.6 % (11.6-14.6); WHITE BLOOD COUNT 10.9 x1000/uL (4.5-11.0)
[2024-06-21] MEDS: HYDRALAZINE 20MG/ML VIAL IV NR (13:27)
[2024-06-21] MEDS: HYDRALAZINE HCL 10MG TABLET PO SCH (20:57)
[2024-06-22] VITALS: BP 171/93; PULSE 100; RESP 18; TEMP 36.6; O2SAT 97
[2024-06-22 04:00] VITALS: BP 144/74; PULSE 95; RESP 18; TEMP 36.5; O2SAT 100
[2024-06-22 08:00] VITALS: BP 150/78; PULSE 101; RESP 20; TEMP 38.5; O2SAT 100
[2024-06-22 12:00] VITALS: BP 189/93; PULSE 97; RESP 19; TEMP 36.5; O2SAT 100
[2024-06-22 16:00] VITALS: BP 145/79; PULSE 89; RESP 18; TEMP 36.6; O2SAT 98
[2024-06-22] MEDS: CLONIDINE 0.2MG TABLET PO NR (18:11)
[2024-06-22 20:00] VITALS: BP 154/87; PULSE 95; RESP 18; TEMP 36.6; O2SAT 99
[2024-06-22] MEDS: HYDRALAZINE HCL 50MG TABLET PO SCH (21:50)
[2024-06-23] VITALS: BP 156/81; PULSE 90; RESP 18; TEMP 36.6; O2SAT 99
== END 2024-06-23 02:55 | DRG 853 ==
LOC: ER 18:40 → MICUSO 23:47 → 8WST 06-06 10:16
PROVIDERS: ADMIT Internal Medicine; ATTEND Internal Medicine
PROC: 5A09357 Assistance with Respiratory Ventilation, Less than 24 Consecutive Hours, Continuous Positive Airway Pressure (ICD-10-PCS; 2024-06-09)
PROC: 5A09357 Assistance with Respiratory Ventilation, Less than 24 Consecutive Hours, Continuous Positive Airway Pressure (ICD-10-PCS; 2024-06-10)
PROC: 30233N1 Transfusion of Nonautologous Red Blood Cells into Peripheral Vein, Percutaneous Approach (ICD-10-PCS; 2024-06-11)
PROC: 0J9Q0ZZ Drainage of Right Foot Subcutaneous Tissue and Fascia, Open Approach (ICD-10-PCS; principal; 2024-06-12)
PROC: B41F1ZZ Fluoroscopy of Right Lower Extremity Arteries using Low Osmolar Contrast (ICD-10-PCS; 2024-06-15)
PROC: 0Y6H0Z3 Detachment at Right Lower Leg, Low, Open Approach (ICD-10-PCS; 2024-06-20)
DX: A41.9 Sepsis, unspecified organism (principal); E11.10 Type 2 diabetes mellitus with ketoacidosis without coma; N17.0 Acute kidney failure with tubular necrosis; E11.52 Type 2 diabetes mellitus with diabetic peripheral angiopathy with gangrene; I70.261 Atherosclerosis of native arteries of extremities with gangrene, right leg; M86.9 Osteomyelitis, unspecified; L02.611 Cutaneous abscess of right foot; E11.22 Type 2 diabetes mellitus with diabetic chronic kidney disease; E87.5 Hyperkalemia; E11.69 Type 2 diabetes mellitus with other specified complication; D64.9 Anemia, unspecified; Z20.822 Contact with and (suspected) exposure to COVID-19; I12.9 Hypertensive chronic kidney disease with stage 1 through stage 4 chronic kidney disease, or unspecified chronic kidney disease; N18.9 Chronic kidney disease, unspecified; E11.65 Type 2 diabetes mellitus with hyperglycemia; E11.649 Type 2 diabetes mellitus with hypoglycemia without coma; S91.311A Laceration without foreign body, right foot, initial encounter; Z79.02 Long term (current) use of antithrombotics/antiplatelets; Z79.4 Long term (current) use of insulin; Z79.84 Long term (current) use of oral hypoglycemic drugs; W18.39XA Other fall on same level, initial encounter; Y93.89 Activity, other specified; Y92.89 Other specified places as the place of occurrence of the external cause; Y99.8 Other external cause status
CPT/HCPCS: 36247; 36415; 36600; 71045; 73590; 73700; 75710; 76700; 80048; 80061; 80076; 80202; 80305; 80320; 81003; 82010; 82040; 82375; 82550; 82570; 82575; 82805; 82962; 83036; 83605; 83735; 83880; 83930; 84100; 84145; 84156; 84300; 84439; 84443; 84484; 85014; 85018; 85025; 85027; 86038; 86160; 86850; 86900; 86920; 87077; 87186; 87426; 87804; 88307; 88311; 93005; 93922; 97162; 97166; 97530; 99291; A4606; C1769; C1893; J0360; J0665; J1171; J1644; J1650; J1815; J2250; J2543; J2704; J3010; J3370; J3490; J7030; L1830; P9016; Q9967; G0480